=== PATIENT | female | born 1980 | race Caucasian/White ===

== ENCOUNTER 2017-06-18 18:32 | Emergency (ER) | payer OTHER ==
--- NOTE | 2017-06-18 19:11 | ED ---
Lower Extremity Injury HPI - General Chief Complaint: Extremity Injury, Lower Stated Complaint: Ankle Injury Time Seen by Provider: 06/18/17 18:58 Source: patient, RN notes reviewed Mode of arrival: wheelchair Limitations: no limitations - History of Present Illness Initial Comments: This is a 36-year-old female who presents to the emergency department with chief complaint of left ankle injury. Patient states that on she rolled her ankle one time. She states that today she rolled it twice. She does state that she fell down and "her head bounced off of the garage floor." She denies any loss of consciousness, contusions, nausea or vomiting, dizziness or headache. Patient states that her left ankle feels weak and keeps giving out on her. She states that she has difficulty bearing weight and ambulating. Denies any other injuries or trauma. Denies fever, chills, chest pain, shortness of breath, abdominal pain, nausea or vomiting, numbness or tingling, headache or vision changes. - Related Data Home Medications Medication Instructions Recorded Confirmed ARIPiprazole [Abilify] 5 mg PO HS 06/18/17 06/18/17 Atorvastatin [Lipitor] 10 mg PO DAILY 06/18/17 06/18/17 Gabapentin [Neurontin] 300 mg PO TID 06/18/17 06/18/17 INSULIN LISPRO (HumaLOG) [HumaLOG] See Protocol SQ AC-TID 06/18/17 06/18/17 Insulin Glargine [Lantus] 40 unit SQ HS 06/18/17 06/18/17 Lisinopril [Zestril] 10 mg PO DAILY 06/18/17 06/18/17 OXcarbazepine [Trileptal] 300 mg PO DAILY 06/18/17 06/18/17 Pantoprazole Sodium [Protonix] 40 mg PO DAILY 06/18/17 06/18/17 QUEtiapine FUMARATE [SEROquel] 100 mg PO HS 06/18/17 06/18/17 QUEtiapine [SEROquel] 25 mg PO TID 06/18/17 06/18/17 Venlafaxine HCl [Effexor] 75 mg PO DAILY 06/18/17 06/18/17 carBAMazepine [TEGretol] 200 mg PO Q12H 06/18/17 06/18/17 Allergies Allergy/AdvReac Type Severity Reaction Status Date / Time ketorolac [From Toradol] Allergy Nausea & Verified 06/18/17 19:49 Vomiting kiwi Allergy Unknown Verified 06/18/17 19:49 nalbuphine [From Nubain] Allergy Wheezing Verified 06/18/17 19:49 Sulfa (Sulfonamide Allergy Wheezing Verified 06/18/17 19:49 Antibiotics) Review of Systems ROS Statement: Those systems with pertinent positive or pertinent negative responses have been documented in the HPI. ROS Other: All systems not noted in ROS Statement are negative. Past Medical History Past Medical History: Diabetes Mellitus, Hyperlipidemia, Hypertension, Seizure Disorder Additional Past Medical History / Comment(s): social anxiety History of Any Multi-Drug Resistant Organisms: None Reported Past Surgical History: Ear Surgery Additional Past Surgical History / Comment(s): jaw surgery, let breast biopsy, cyst removed from shoulder, Past Psychological History: Bipolar, PTSD, Schizophrenia Smoking Status: Never smoker Past Alcohol Use History: Occasional Past Drug Use History: Marijuana General Exam - General Exam Comments Initial Comments: General: Awake and alert, well-developed; in no apparent distress. HEENT: Head atraumatic, normocephalic. Pupils are equal, round and reactive to light. Extraocular movements intact. Oropharynx moist without erythema or exudate. Neck: Supple. Normal ROM. Cardiovascular: Regular rate and rhythm. No murmurs, rubs or gallops. Chest symmetrical. Respiratory: Lungs clear to auscultation bilaterally. No wheezes, rales or rhonchi. Normal respiratory effort with no use of accessory muscles. Musculoskeletal: Normal range of motion of the left ankle. There is tenderness on palpation of the lateral malleolus. No gross deformities or ecchymosis. Mild soft tissue swelling to the lateral aspect of the ankle. Sensation is intact. Pedal pulses are 2+ equal and palpable bilaterally. Skin: [place], warm and dry without rashes or lesions. Neurological: Alert and oriented x3. CN II-XII grossly intact. Speech is fluent and answers are appropriate. No focal neuro deficits. Psychiatric: Normal mood and affect. No overt signs of depression or anxiety noted. Limitations: no limitations Course Vital Signs 06/18/17 06/18/17 18:47 19:39 Temperature 97.7 F 96.7 F L Pulse Rate 107 H 100 Respiratory 18 16 Rate Blood Pressure 101/55 134/61 O2 Sat by Pulse 98 96 Oximetry Procedures - Orthopedic Splinting/Casting Injury #1 Side: left Lower Extremity Injury Location: ankle Lower Extremity Immobilizer: AirCast Medical Decision Making - Medical Decision Making This is a 36-year-old female who presents to the emergency department with chief complaint of left ankle injury. Patient states that she rolled her left ankle once on and twice today. There is tenderness on palpation of the lateral malleolus with surrounding soft tissue swelling. Otherwise unremarkable exam. X-ray revealed no acute fractures or dislocations. Patient likely suffering from an ankle sprain. An Aircast was applied to the left ankle and patient tolerated well without complication. She is neurovascularly intact. Patient will be given a prescription for crutches. She also be given referral to orthopedics. Patient is in no acute distress and will be discharged home at this time. She is in agreement with plan and voices understanding. All questions were answered. - Radiology Data Radiology results: report reviewed Left ankle x-ray impression: No acute process. Disposition Clinical Impression: Ankle sprain and strain Disposition: HOME SELF-CARE Condition: Good Instructions: Ankle Sprain (ED) Additional Instructions: Please follow-up with Dr. Verduzco, orthopedics. May take ibuprofen 600 mg every 6 hours as needed for pain and inflammation. Please rest, ice, elevate. May use Aircast while ambulating. Please follow up with primary care provider within 1-2 days. Return to emergency department if symptoms should worsen or any concerns arise. Is patient prescribed a controlled substance at d/c from ED?: No Referrals: Bean Schulz MD [Primary Care Provider] - 1-2 days Ace Verduzco MD [STAFF PHYSICIAN] - 1-2 days Time of Disposition: 19:56
[2017-06-18 19:40] VITALS: BP 134/61; PULSE 100; RESP 16; TEMP 96.7
--- NOTE | 2017-06-18 19:50 | XR ---
PROCEDURE: XR ankle complete LT, 3 views DATE AND TIME: 06/18/2017 7:19 PM REFERRING PHYSICIAN: Lorna Colon CLINICAL INDICATION: PHH, Pain TECHNIQUE: Department protocol. COMPARISON: None FINDINGS: There is no fracture or malalignment. The soft tissues are unremarkable. IMPRESSION: NO ACUTE PROCESS.
== END 2017-06-18 20:11 | disposition home or self-care (01) ==
LOC: EC 18:32
DX: S93.402A Sprain of unspecified ligament of left ankle, initial encounter (principal); S96.912A Strain of unspecified muscle and tendon at ankle and foot level, left foot, initial encounter; Z88.2 Allergy status to sulfonamides; Z88.5 Allergy status to narcotic agent; Z88.6 Allergy status to analgesic agent; Z91.018 Allergy to other foods; E78.5 Hyperlipidemia, unspecified; I10 Essential (primary) hypertension; E11.9 Type 2 diabetes mellitus without complications; G40.909 Epilepsy, unspecified, not intractable, without status epilepticus; F20.9 Schizophrenia, unspecified; F31.9 Bipolar disorder, unspecified; F40.10 Social phobia, unspecified; Z79.4 Long term (current) use of insulin; Z79.899 Other long term (current) drug therapy; X50.9XXA Other and unspecified overexertion or strenuous movements or postures, initial encounter; W01.198A Fall on same level from slipping, tripping and stumbling with subsequent striking against other object, initial encounter; Y93.01 Activity, walking, marching and hiking; Y92.89 Other specified places as the place of occurrence of the external cause
CPT/HCPCS: 99283

== ENCOUNTER 2017-08-22 15:37 | Emergency (ER) | payer OTHER ==
[2017-08-22] MEDS ORDERED: LORazepam 1 MG TAB PO STA (15:59)
--- NOTE | 2017-08-22 16:00 | ED ---
General Adult HPI - General Chief complaint: Psychiatric Symptoms Stated complaint: Mental Health Source: patient Mode of arrival: ambulatory Limitations: no limitations - History of Present Illness Initial comments: Dictation was produced using [employer] dictation software. please excuse any grammatical, word or spelling errors. Chief Complaint: 37-year-old female with past medical history of bipolar schizophrenia presents with suicidal ideation. History of Present Illness: She presents here voluntarily. She states that she' s been stressed out recently. She has been feeling suicidal as of late. Patient has had multiple suicidal attempts in the past. At one point she would eat on insulin and another time she tried to overdose on Seroquel pills. Patient does not explain any specific plan today. States she has visual hallucinations. She has delusions at baseline. Past Medical History: Diabetes, bipolar schizophrenia, hypertension, seizure disorder Past Surgical History: Ear surgery, jaw surgery, left breast biopsy Social History: Occasional tobacco, occasional EtOH Family History: reviewed and noncontributory The ROS documented in this emergency department record has been reviewed and confirmed by me. Those systems with pertinent positive or negative responses have been documented in the HPI. All other systems are other negative and/or noncontributory. - Related Data Home Medications Medication Instructions Recorded Confirmed ARIPiprazole [Abilify] 5 mg PO HS 06/18/17 08/22/17 Gabapentin [Neurontin] 300 mg PO TID 06/18/17 08/22/17 INSULIN LISPRO (HumaLOG) [HumaLOG] See Protocol SQ AC-TID 06/18/17 08/22/17 Lisinopril [Zestril] 10 mg PO DAILY 06/18/17 08/22/17 OXcarbazepine [Trileptal] 300 mg PO DAILY 06/18/17 08/22/17 Pantoprazole Sodium [Protonix] 40 mg PO DAILY 06/18/17 08/22/17 QUEtiapine FUMARATE [SEROquel] 100 mg PO HS 06/18/17 08/22/17 QUEtiapine [SEROquel] 25 mg PO TID 06/18/17 08/22/17 Venlafaxine HCl [Effexor] 75 mg PO DAILY 06/18/17 08/22/17 Atorvastatin [Lipitor] 40 mg PO DAILY 08/22/17 08/22/17 Insulin Glargine,Hum.rec.anlog 40 unit SQ HS 08/22/17 08/22/17 [Basaglar Kwikpen U-100] Pioglitazone [Actos] 30 mg PO DAILY 08/22/17 08/22/17 Venlafaxine HCl [Effexor] 37.5 mg PO DAILY 08/22/17 08/22/17 Allergies Allergy/AdvReac Type Severity Reaction Status Date / Time ketorolac [From Toradol] Allergy Nausea & Verified 08/22/17 16:17 Vomiting kiwi Allergy Unknown Verified 08/22/17 16:17 nalbuphine [From Nubain] Allergy Wheezing Verified 08/22/17 16:17 Sulfa (Sulfonamide Allergy Wheezing Verified 08/22/17 16:17 Antibiotics) Review of Systems ROS Statement: Those systems with pertinent positive or pertinent negative responses have been documented in the HPI. ROS Other: All systems not noted in ROS Statement are negative. Past Medical History Past Medical History: Diabetes Mellitus, Hyperlipidemia, Hypertension, Seizure Disorder Additional Past Medical History / Comment(s): social anxiety History of Any Multi-Drug Resistant Organisms: None Reported Past Surgical History: Ear Surgery Additional Past Surgical History / Comment(s): jaw surgery, let breast biopsy, cyst removed from shoulder, Past Psychological History: Bipolar, PTSD, Schizophrenia Smoking Status: Never smoker Past Alcohol Use History: Occasional Past Drug Use History: Marijuana General Exam - General Exam Comments Initial Comments: Vitals: Vital signs upon arrival shows heart rate of 114, rest of signs within normal limits PHYSICAL EXAM: General Impression: Alert and oriented x3, not in acute distress HEENT: Normocephalic atraumatic, extra-ocular movements intact, pupils equal and reactive to light bilaterally, mucous membranes moist. Cardiovascular: Heart regular rate and rhythm, S1&S2 audible, no murmurs, rubs or gallops Chest: Lungs clear to auscultation bilaterally, no rhonchi, no wheeze, no rales Abdomen: Bowel sounds present, abdomen soft, non-tender, non-distended, no organomegaly Musculoskeletal: Pulses present and equal in all extremities, no peripheral edema Motor: Power 5/5 bilaterally, no focal deficits noted Neurological: CN II-XII grossly intact, no focal motor or sensory deficits noted Skin: Intact with no visualized rashes Psych: Normal affect and mood Limitations: no limitations Course Vital Signs 08/22/17 08/22/17 08/23/17 15:40 22:14 00:05 Temperature 97.6 F 99.1 F 98.2 F Pulse Rate 114 H 63 78 Respiratory 18 16 18 Rate Blood Pressure 103/66 124/65 118/51 O2 Sat by Pulse 99 96 98 Oximetry Medical Decision Making - Medical Decision Making ED course: 37-year-old female with past medical history of psychiatric disease and suicidal attempt presents with suicidal ideation. Patient is considered high risk that she has past medical history of psychiatric disorder and has history of multiple suicidal attempts in the past. Patient presents voluntarily. She is well-appearing at this time. Patient reports feeling slightly anxious patient is given some by mouth benzodiazepines. EPS nurse noted. Patient be medically cleared and evaluated by EPS staff.patient evaluated by EPS staffed with plans to disposition patient to psychiatric facility. - Lab Data Result diagrams: 08/22/17 18:35 08/22/17 18:35 Lab Results 08/22/17 08/22/17 08/22/17 Range/Units 16:04 17:25 17:25 WBC (3.8-10.6) k/uL RBC (3.80-5.40) m/uL Hgb (11.4-16.0) gm/dL Hct (34.0-46.0) % MCV (80.0-100.0) fL MCH (25.0-35.0) pg MCHC (31.0-37.0) g/dL RDW (11.5-15.5) % Plt Count (150-450) k/uL Neutrophils % % Lymphocytes % % Monocytes % % Eosinophils % % Basophils % % Neutrophils # (1.3-7.7) k/uL Lymphocytes # (1.0-4.8) k/uL Monocytes # (0-1.0) k/uL Eosinophils # (0-0.7) k/uL Basophils # (0-0.2) k/uL Sodium (137-145) mmol/L Potassium (3.5-5.1) mmol/L Chloride (98-107) mmol/L Carbon Dioxide (22-30) mmol/L Anion Gap mmol/L BUN (7-17) mg/dL Creatinine (0.52-1.04) mg/dL Est GFR (CKD-EPI)AfAm (>60 ml/min/1.73 sqM) Est GFR (CKD-EPI)NonAf (>60 ml/min/1.73 sqM) Glucose (74-99) mg/dL POC Glucose (mg/dL) 160 H (75-99) mg/dL POC Glu [employer] Consultant ID Truman Larsen Calcium (8.4-10.2) mg/dL Total Bilirubin (0.2-1.3) mg/dL AST (14-36) U/L ALT (9-52) U/L Alkaline Phosphatase (38-126) U/L Total Protein (6.3-8.2) g/dL Albumin (3.5-5.0) g/dL Urine Color Urine Appearance (Clear) Urine pH (5.0-8.0) Ur Specific [place] (1.001-1.035) Urine Protein (Negative) Urine Glucose (UA) (Negative) Urine Ketones (Negative) Urine Blood (Negative) Urine Nitrite (Negative) Urine Bilirubin (Negative) Urine Urobilinogen (<2.0) mg/dL Ur Leukocyte Esterase (Negative) Urine RBC (0-5) /hpf Urine WBC (0-5) /hpf Ur Squamous Epith Cells (0-4) /hpf Calcium Oxalate Crystal (None) /hpf Urine Mucus (None) /hpf Urine HCG, Qual Not Detected (Not Detectd) Urine Opiates Screen Detected H (NotDetected) Ur Oxycodone Screen Not Detected (NotDetected) Urine Methadone Screen Not Detected (NotDetected) Ur Propoxyphene Screen Not Detected (NotDetected) Ur Barbiturates Screen Not Detected (NotDetected) U Tricyclic Antidepress Detected H (NotDetected) Ur Phencyclidine Scrn Not Detected (NotDetected) Ur Amphetamines Screen Not Detected (NotDetected) U Methamphetamines Scrn Not Detected (NotDetected) U Benzodiazepines Scrn Not Detected (NotDetected) Urine Cocaine Screen Not Detected (NotDetected) U Marijuana (THC) Screen Detected H (NotDetected) 08/22/17 08/22/17 08/22/17 Range/Units 18:00 18:35 18:35 WBC 8.2 (3.8-10.6) k/uL RBC 4.15 (3.80-5.40) m/uL Hgb 12.3 (11.4-16.0) gm/dL Hct 37.7 (34.0-46.0) % MCV 91.0 (80.0-100.0) fL MCH 29.7 (25.0-35.0) pg MCHC 32.6 (31.0-37.0) g/dL RDW 13.5 (11.5-15.5) % Plt Count 235 (150-450) k/uL Neutrophils % 57 % Lymphocytes % 32 % Monocytes % 7 % Eosinophils % 3 % Basophils % 1 % Neutrophils # 4.6 (1.3-7.7) k/uL Lymphocytes # 2.6 (1.0-4.8) k/uL Monocytes # 0.6 (0-1.0) k/uL Eosinophils # 0.2 (0-0.7) k/uL Basophils # 0.0 (0-0.2) k/uL Sodium 140 (137-145) mmol/L Potassium 4.1 (3.5-5.1) mmol/L Chloride 103 (98-107) mmol/L Carbon Dioxide 24 (22-30) mmol/L Anion Gap 13 mmol/L BUN 13 (7-17) mg/dL Creatinine 0.65 (0.52-1.04) mg/dL Est GFR (CKD-EPI)AfAm >90 (>60 ml/min/1.73 sqM) Est GFR (CKD-EPI)NonAf >90 (>60 ml/min/1.73 sqM) Glucose 148 H (74-99) mg/dL POC Glucose (mg/dL) (75-99) mg/dL POC Glu [employer] Consultant ID Calcium 8.8 (8.4-10.2) mg/dL Total Bilirubin 0.2 (0.2-1.3) mg/dL AST 17 (14-36) U/L ALT 30 (9-52) U/L Alkaline Phosphatase 70 (38-126) U/L Total Protein 6.2 L (6.3-8.2) g/dL Albumin 3.9 (3.5-5.0) g/dL Urine Color Yellow Urine Appearance Clear (Clear) Urine pH 5.5 (5.0-8.0) Ur Specific [place] 1.013 (1.001-1.035) Urine Protein Negative (Negative) Urine Glucose (UA) Negative (Negative) Urine Ketones Negative (Negative) Urine Blood Small H (Negative) Urine Nitrite Negative (Negative) Urine Bilirubin Negative (Negative) Urine Urobilinogen <2.0 (<2.0) mg/dL Ur Leukocyte Esterase Negative (Negative) Urine RBC 7 H (0-5) /hpf Urine WBC 3 (0-5) /hpf Ur Squamous Epith Cells <1 (0-4) /hpf Calcium Oxalate Crystal Occasional H (None) /hpf Urine Mucus Rare H (None) /hpf Urine HCG, Qual (Not Detectd) Urine Opiates Screen (NotDetected) Ur Oxycodone Screen (NotDetected) Urine Methadone Screen (NotDetected) Ur Propoxyphene Screen (NotDetected) Ur Barbiturates Screen (NotDetected) U Tricyclic Antidepress (NotDetected) Ur Phencyclidine Scrn (NotDetected) Ur Amphetamines Screen (NotDetected) U Methamphetamines Scrn (NotDetected) U Benzodiazepines Scrn (NotDetected) Urine Cocaine Screen (NotDetected) U Marijuana (THC) Screen (NotDetected) Disposition Clinical Impression: Suicidal ideation Disposition: TRANSFER TO PSYCH HOSP/UNIT Is patient prescribed a controlled substance at d/c from ED?: No Referrals: Bean Schulz MD [Primary Care Provider] - 1-2 days
[2017-08-22 16:14] LABS: Glucose,Whole Blood 160 mg/dL (75-99)
[2017-08-22 17:49] LABS: Amphetamine Screen,Urine Not Detected (NotDetected); Benzodiazepines Screen,Urine Not Detected (NotDetected); Cocaine Screen,Urine Not Detected (NotDetected); Opiate Screen,Urine Detected (NotDetected); Phencyclidine Screen,Urine Not Detected (NotDetected); Urn Cannabinoid Scrn Detected (NotDetected)
[2017-08-22 17:50] LABS: Barbiturate Screen,Urine Not Detected (NotDetected); Methadone Screen, Urine Not Detected (NotDetected); Oxycodone Screen, Urine Not Detected (NotDetected); Tricyclic Antidepressant,Urine Detected (NotDetected)
[2017-08-22 18:21] LABS: Appearance,Urine Clear (Clear); Bilirubin,Urine Negative (Negative); Blood,Urine Small (Negative); Calcium Oxalate Crystals,Urine Occasional /hpf; Color,Urine Yellow; Glucose,Urine (UA) Negative (Negative); Ketones,Urine Negative (Negative); Leukocyte Esterase,Urine Negative (Negative); Mucus,Urine Rare /hpf; Nitrite,Urine Negative (Negative); PH, Urine 5.5 (5.0-8.0); Protein,Urine Negative (Negative); RBC,Urine 7 /hpf (0-5); Specific Gravity,Urine 1.013 (1.001-1.035); Squamous Epithelial Cell,Urine <1 /hpf (0-4); Urobilinogen,Urine <2.0 mg/dL (<2.0); WBC,Urine 3 /hpf (0-5)
[2017-08-22 18:41] LABS: Basophils % (A) 1 %; Eosinophils # (A) 0.2 k/uL (0-0.7); Eosinophils % (A) 3 %; HCT 37.7 % (34.0-46.0); HGB 12.3 gm/dL (11.4-16.0); Lymphocytes # (A) 2.6 k/uL (1.0-4.8); Lymphocytes % (A) 32 %; MCH 29.7 pg (25.0-35.0); MCHC 32.6 g/dL (31.0-37.0); Mean Platelet Volume 7.2; Monocytes # (A) 0.6 k/uL (0-1.0); Monocytes % (A) 7 %; Neutrophils # (A) 4.6 k/uL (1.3-7.7); Neutrophils % (A) 57 %; Platelet Count 235 k/uL (150-450); RBC 4.15 m/uL (3.80-5.40); RDW 13.5 % (11.5-15.5); WBC 8.2 k/uL (3.8-10.6)
[2017-08-22 18:53] LABS: ALT 30 U/L (9-52); AST 17 U/L (14-36); Albumin 3.9 g/dL (3.5-5.0); Alkaline Phosphatase 70 U/L (38-126); Anion Gap 13 mmol/L; Blood Urea Nitrogen 13 mg/dL (7-17); Calcium 8.8 mg/dL (8.4-10.2); Carbon Dioxide 24 mmol/L (22-30); Chloride 103 mmol/L (98-107); Glucose 148 mg/dL (74-99); Potassium 4.1 mmol/L (3.5-5.1); Sodium 140 mmol/L (137-145); Total Bilirubin 0.2 mg/dL (0.2-1.3); Total Protein 6.2 g/dL (6.3-8.2)
[2017-08-23 00:08] VITALS: BP 118/51; PULSE 78; RESP 18; TEMP 98.2
== END 2017-08-23 00:05 ==
LOC: EC 15:37
DX: R45.851 Suicidal ideations (principal); E11.9 Type 2 diabetes mellitus without complications; E78.5 Hyperlipidemia, unspecified; I10 Essential (primary) hypertension; G40.909 Epilepsy, unspecified, not intractable, without status epilepticus; F31.9 Bipolar disorder, unspecified; F43.10 Post-traumatic stress disorder, unspecified; F20.9 Schizophrenia, unspecified; Z79.4 Long term (current) use of insulin; Z79.899 Other long term (current) drug therapy; Z88.2 Allergy status to sulfonamides; Z88.6 Allergy status to analgesic agent; Z91.018 Allergy to other foods; Z88.8 Allergy status to other drugs, medicaments and biological substances
CPT/HCPCS: 36415; 80053; 80306; 81001; 81025; 82075; 85025; 99285